=== PATIENT | female | born 1935 | race African-American/Black ===

== ENCOUNTER → 2017-02-04 | Outpatient (CLI) | payer OTHER, MEDICARE ==
--- NOTE | 2017-02-05 09:29 | RAD ---
DATE: 02/04/2017 EXAM: DIGITAL SCREEN BILAT W/CAD HISTORY: Routine screening COMPARISON: 01/16/2016 This study was interpreted with the benefit of Computerized Aided Detection (CAD). The breast parenchyma shows scattered fibroglandular densities. Breast parenchyma level B. FINDINGS: No new or enlarging breast densities are seen. Benign type calcifications are present in both breasts. No suspicious microcalcifications have developed. IMPRESSION: Stable mammograms without evidence of malignancy. BI-RADS CATEGORY: 2 BENIGN FINDING(S) RECOMMENDED FOLLOW-UP: 12M 12 MONTH FOLLOW-UP PQRS compliance statement: Patient information was entered into a reminder system with a target due date for the next mammogram. Mammography is a sensitive method for finding small breast cancers, but it does not detect them all and is not a substitute for careful clinical examination. A negative mammogram does not negate a clinically suspicious finding and should not result in delay in biopsying a clinically suspicious abnormality. "Our facility is accredited by the [employer] Mammography Program."
== END | disposition home or self-care (01) ==
LOC: MAMMO 09:53
PROVIDERS: ATTEND Internal Medicine
DX: Z12.31 Encounter for screening mammogram for malignant neoplasm of breast (principal)
CPT/HCPCS: G0202; 77067

== ENCOUNTER → 2019-01-16 | Outpatient (CLI) | payer MEDICARE, OTHER ==
--- NOTE | 2019-01-16 15:03 | KCIC ---
RENAL COMPLETE BILATERAL History: CK disease stage III Comparison: None. Findings: Multiple sonographic images of the kidneys and urinary bladder submitted. Right kidney measured 10.5 x 4.5 x 4 0.2 cc. Left kidney measured 10.2 x 4.5 x 4.3 cm. Renal parenchyma is somewhat echogenic bilaterally. There is no hydronephrosis of either kidney. Inferior vena cava is not well visualized on this exam. Abdominal aortic caliber is within normal limits up to 2.3 cm proximally. There is diffuse plaque of the abdominal aorta. Ureteral jets are not seen during exam. Urinary bladder is within normal limits, not significantly distended. Impression: 1. There is no hydronephrosis of either kidney, somewhat echogenic renal parenchyma which could be due to medical renal disease. Electronically signed by: Brad Rodriguez MD (01/16/2019 3:00 PM) [id number]
== END | disposition home or self-care (01) ==
LOC: KCIC US 12:18
PROVIDERS: ATTEND Internal Medicine Nephrology
DX: N18.3 Chronic kidney disease, stage 3 (moderate) (principal); I70.0 Atherosclerosis of aorta
CPT/HCPCS: 76770

== ENCOUNTER → 2020-01-06 | Outpatient (CLI) | payer MEDICARE ==
--- NOTE | 2020-01-06 13:18 | RAD ---
EXAM: BILATERAL DIGITAL DIAGNOSTIC MAMMOGRAPHY, and Limited right breast ultrasound. HISTORY: 84-year-old woman with right breast lump. She is due for screening.. TECHNIQUE: Bilateral full field digital images were obtained in CC and MLO projections. 2-D and 3-D images were acquired. Targeted ultrasound of the right breast was then performed in the area of clinical concern. COMPARISON: February 04, 2017 and January 16, 2016 bilateral mammograms.. COMPOSITION: C. The breasts are heterogeneously dense, which may obscure small masses. FINDINGS: Left mammogram is negative. Right mammogram shows interval development of diffuse skin thickening and trabecular coarsening. There is been a generalized increase in density in the right breast compared with the left and on the 3-D mammograms, an irregular mass measuring 5 x 3 cm is identified in the upper outer quadrant that correlates with the patient's reported area of palpable concern as marked on the skin surface the triangular marker. Targeted ultrasound of the upper outer quadrant right breast reveals an irregular hypoechoic antiparallel mass at the 9:30 o'clock position 9 cm from the nipple that has overlying skin retraction and thickening. Due to the extensive associated shadowing, accurate measurement of the mass is challenging but by ultrasound, it measures approximately 2.4 cm. Sonographic survey of the right axilla shows a few normal sized axillary lymph nodes with subtle asymmetric cortical thickening, equivocal for possible tumor infiltration. BI-RADS CATEGORY: 5: Highly Suggestive of Malignancy--Appropriate action should be taken. RECOMMENDATION: Right breast biopsy in the area of palpable concern is recommended with consideration of biopsy of right axillary lymph nodes as well. Discussed with patient with her son present at her request prior to her discharge from the imaging suite. Also discussed the findings and recommendations with patient's referring physician Dr. Guerra's nurse Ifrah Lenz LPN by telephone at 1:11 PM 01/06/2020. Patient entered into a reminder system for targeted due date for next mammogram. Electronically signed by: Millicent Cagle MD (01/06/2020 1:15 PM) [id number]
== END | disposition home or self-care (01) ==
LOC: MAMMO 08:00
PROVIDERS: ATTEND Internal Medicine
DX: N63.11 Unspecified lump in the right breast, upper outer quadrant (principal)
CPT/HCPCS: 76641; 77066; G0279; 77062

== ENCOUNTER → 2020-02-13 | Outpatient (CLI) | payer MEDICARE ==
--- NOTE | 2020-02-13 11:44 | RAD ---
EXAM: 1. ULTRASOUND-GUIDED CORE BIOPSY RIGHT BREAST WITH CLIP PLACEMENT. 2. POSTCLIP DIAGNOSTIC RIGHT MAMMOGRAPHY. HISTORY: Right breast mass. Ultrasound-guided biopsy is requested. FINDINGS: The procedure along with its risks and benefits were explained to the patient. She agreed to proceed. A timeout procedure was performed. Sonographic evaluation of the right breast redemonstrates the region of concern. A hypoechoic shadowing mass within the right lower outer breast adjacent to the site of skin retraction was selected for biopsy. Survey of the right axilla revealed no clearly pathologically appearing lymph nodes. The overlying skin was sterilely prepped and infiltrated with 1% lidocaine for local anesthesia. Under ultrasound guidance, 3 core needle specimens of the target lesion were obtained using a 14-gauge biopsy device. These were submitted in formalin. A postbiopsy clip was placed under ultrasound guidance. Pressure was held to hemostasis. There were no immediate complications. Full-field digital mammographic views of the right breast were obtained in CC and MLO projections and interpreted on a dedicated workstation. They demonstrate the clip in correspondence with the targeted region, which is not discretely masslike mammographically. Extensive skin thickening and interstitial edema are again noted. IMPRESSION: 1. Successful ultrasound-guided right breast biopsy with clip placement. 2. The postbiopsy clip corresponds with the target lesion. Electronically signed by: Daisha Michelle MD (02/13/2020 11:41 AM) [id number]
--- NOTE | 2020-02-14 18:10 | PATHOLOGY ---
[facility] Accession Number: [id number] . 01 Material submitted: . breast - RIGHT BREAST MASS 9:30 9CMFN 2.7CM. Modifiers: right . 01 Clinical history: . Right breast mass 9:30 9 cm from nipple, 2.7 cm . 02 Diagnosis: Breast tissue, right breast mass 9:30 needle biopsies: - INVASIVE DUCTAL CARCINOMA, HIGH GRADE. SEE COMMENT. (JPM:pit 02/14/2020) [facility] 02/14/2020 1720 Local . 02 Comment: Sections of the right breast mass 9:30 needle biopsy reveal an invasive mammary carcinoma. The tumor cells are largely present in small solid nests and show little evidence of tubule formation. The tumor cells are associated with a reactive desmoplastic stroma and focally infiltrate fatty tissue. The tumor shows moderate to marked nuclear pleomorphism. The tumor focally shows up to three mitotic figures within a high power field. The tumor measures up to 1.6 cm in greatest dimension on the glass slide. There is no lymphovascular tumor invasion. There are no tumor associated calcifications. The morphologic findings are supportive of the diagnosis of an invasive high grade ductal carcinoma. Breast prognostic studies will be obtained, results of which will be reported separately. The case is also examined by Dr. Garcia, who concurs with the diagnosis. (JPM:pit 02/14/2020) . 02 Electronically signed: . Zechariah Suresh MD, Pathologist NPI- [id number] . 01 Gross description: . The specimen is received in formalin, labeled "Jeni Wood, right breast". Received are three needle cores of fibrofatty tissue measuring 2.1 x 0.6 x 0.2 cm in aggregate dimensions. The specimen is submitted entirely in cassettes A1 through A3. The cold ischemic time is less than 1 minute. The total formalin fixation time is 12 hours and 13 minutes. (CAA; 02/13/2020) [facility] 02/13/2020 1552 Local . 02 Pathologist provided ICD-10: C50.911 . 02 CPT . 119714 Specimen Comment: A courtesy copy of this report has been sent to [phone] Specimen Comment: [id number], Specimen Comment: Report sent to ,DR VELEZ / DR VALDEZ Performed at: 01 [facility] [address] [facility] [address], [place] [id number] MD Chino Vizcarra MD Phone: [phone] Performed at: 02 [facility] [address] [place], [place] [id number] MD Zechariah Suresh MD Phone: [phone]
== END | disposition home or self-care (01) ==
LOC: US 09:43
PROVIDERS: ATTEND Surgery
DX: R92.2 Inconclusive mammogram (principal); N63.10 Unspecified lump in the right breast, unspecified quadrant
CPT/HCPCS: 76942; 77065; C1713; 88305; 88361

== ENCOUNTER → 2020-02-26 | Outpatient (CLI) | payer MEDICARE ==
[2020-02-26 15:25] LABS: BASO % 1 % (0-3); EOS % 1 % (0-3); HEMATOCRIT 32.4 % (36.0-47.0); HEMOGLOBIN 10.7 g/dL (12.0-15.5); LYMPH # 1.7 x10^3/uL (1.0-4.8); LYMPH % 28 % (24-48); MEAN CORPUSCULAR HEMOGLOBIN 28 pg (25-35); MEAN CORPUSCULAR HGB CONC 33 g/dL (31-37); MEAN CORPUSCULAR VOLUME 84 fL (79-100); MONO # 0.9 x10^3/uL (0.0-1.1); MONO % 15 % (0-9); NEUT # 3.4 x10^3/uL (1.8-7.7); NEUT % 56 % (31-73); PLATELET COUNT 283 x10^3/uL (140-400); RED BLOOD COUNT 3.85 x10^6/uL (3.50-5.40); RED CELL DISTRIBUTION WIDTH 14.6 % (11.5-14.5)
[2020-02-26 15:44] LABS: ALBUMIN 3.2 g/dL (3.4-5.0); ALBUMIN/GLOBULIN RATIO 0.8 (1.0-1.7); CALCIUM 8.6 mg/dL (8.5-10.1); CREATININE 1.8 mg/dL (0.6-1.0); GFR 32.5; TOTAL BILIRUBIN 0.3 mg/dL (0.2-1.0); TOTAL PROTEIN 7.1 g/dL (6.4-8.2)
== END | disposition home or self-care (01) ==
LOC: ONCLAB 08:50
PROVIDERS: ATTEND Internal Medicine Hematology & Oncology
DX: C50.411 Malignant neoplasm of upper-outer quadrant of right female breast (principal)
CPT/HCPCS: 36415; 80053; 85025

== ENCOUNTER → 2020-03-06 | Outpatient (CLI) | payer MEDICARE ==
--- NOTE | 2020-03-06 15:24 | RAD ---
EXAM: PET W CT SKULL TO MIDTHIGH EXAM DATE: 03/06/2020 INDICATION: Reason: BREAST CA / Spl. Instructions: / History: RADIOPHARMACEUTICAL: 15.0 mCi of F-18 Fluorodeoxyglucose (FDG) I.V. via the right antecubital fossa. TECHNIQUE: Patient weight: 160 pounds. Following at least four-hour fasting, the patient's blood glucose was 156 mg/dl. Approximately 1 hour after administration of FDG, overlapping emission scanning was performed from the orbital meatal line through the pelvis. A low-dose CT was performed for attenuation correction purposes and anatomic localization. Fused images of PET and CT were reviewed. Any standardized uptake values (SUV) reported are maximum values within a volume region of interest, expressed in gm/ml. COMPARISON: Right post procedure diagnostic mammogram of 02/13/2020. FINDINGS: PET: In the head and neck, no abnormal FDG uptake is appreciated. In the chest, abnormal FDG uptake is evident in the skin of the right anterior chest wall (3.7 max SUV), the right breast parenchyma (6.5 max SUV) , the right pectoralis major muscle (4.9 Max SUV), the right levels 1 and 2 axillary lymph nodes (3.8 and 4.9 Max SUV respectively), a right internal mammary lymph node (4.5 max SUV), and a right hilar lymph node. There is also small right pleural effusion with a low level of FDG uptake (1.8 Max SUV). Background mediastinal activity is 2.9 Max SUV. No abnormal FDG activity in the abdomen or pelvis identified. Background liver activity measures 3.6 Max SUV No abnormal activity in the bones. CT: Attenuation correction CT images show right chest wall edema and skin thickening with mildly enlarged right axillary lymph nodes. 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 Small right pleural effusion shows no obvious soft tissue nodularity or loculation. No obvious interstitial thickening in the pulmonary parenchyma. Abdomen and pelvis show scattered colonic diverticuli with no omental cake, ascites or adenopathy. The uterus is absent. No adnexal mass is evident. No aggressive appearing osseous lesions. Bilateral L5 pars defects with grade 1 anterolisthesis. IMPRESSION: Locally advanced right breast cancer with evidence of dermal lymphatic invasion and mary ann extension up to potentially the right hilar lymph nodes. A small right pleural effusion is present that shows low level FDG uptake. It should be amenable for diagnostic thoracentesis if it would assist with patient clinical management. Electronically signed by: Millicent Cagle MD (03/06/2020 3:21 PM) [id number]
== END ==
LOC: PETSC 08:55
PROVIDERS: ATTEND Internal Medicine Hematology & Oncology
DX: C50.411 Malignant neoplasm of upper-outer quadrant of right female breast (principal); R59.0 Localized enlarged lymph nodes; I35.8 Other nonrheumatic aortic valve disorders; J90 Pleural effusion, not elsewhere classified
CPT/HCPCS: 78815; A9552

== ENCOUNTER → 2020-03-11 | Outpatient (CLI) | payer MEDICARE ==
[2020-03-11 13:05] LABS: ALBUMIN 3.2 g/dL (3.4-5.0); DIRECT BILIRUBIN 0.2 mg/dL (0.0-0.2); TOTAL BILIRUBIN 0.3 mg/dL (0.2-1.0); TOTAL PROTEIN 6.9 g/dL (6.4-8.2)
[2020-03-13 19:10] LABS: METHYLMALONIC ACID 220 nmol/L (0-378)
== END | disposition home or self-care (01) ==
LOC: ONCLAB 12:21
PROVIDERS: ATTEND Physician Assistant
DX: C50.411 Malignant neoplasm of upper-outer quadrant of right female breast (principal)
CPT/HCPCS: 36415; 80076; 82607; 82728; 82746; 83540; 83550; 83921; 86705; 86709; 86803; 87340

== ENCOUNTER → 2020-03-18 | Outpatient (CLI) | payer MEDICARE ==
--- NOTE | 2020-03-18 14:08 | KCIC ---
INDICATION: Osteoporosis screening. Postmenopausal screening COMPARISON: None. TECHNIQUE: Bone densitometry was performed through the lumbar spine and proximal femur. FINDINGS: Lumbar Spine: BMD: 1.1 T-Score: 0.5 Proximal Femur: BMD: 0.9 T-Score: -0.4 IMPRESSION: 1. Lumbar spine falls within the normal range. 2. Proximal femur falls within the normal range. Electronically signed by: Enzo Cm MD (03/18/2020 2:05 PM) [id number]
== END | disposition home or self-care (01) ==
LOC: KCIC DEXA 10:58
PROVIDERS: ATTEND Physician Assistant
DX: C50.411 Malignant neoplasm of upper-outer quadrant of right female breast (principal); Z13.820 Encounter for screening for osteoporosis; Z78.0 Asymptomatic menopausal state
CPT/HCPCS: 77080

== ENCOUNTER → 2020-04-01 | Outpatient (CLI) | payer MEDICARE ==
--- NOTE | 2020-04-01 12:51 | RAD ---
EXAM: CHEST PA LATERAL INDICATION: Reason: ASSESS PLEURAL EFFUSION. INVASIVE DUCTAL CARCINOMA OF FEMALE BREAST. / Spl. Instructions: / History: . TECHNIQUE: PA and lateral views COMPARISON: PET CT of 03/06/2020 FINDINGS: Heart is moderately enlarged, status post CABG. At least 4 of the sixth sternotomy wires are broken. The great vessels show aortic calcification and mild tortuosity. There is mild prominence of the right pulmonary artery.. There is no hilar or mediastinal mass. Lungs are hypoventilatory but show no focal infiltrates. No evidence of pneumothorax. Small right pleural effusion. There are no significant osseous abnormalities. IMPRESSION: Cardiomegaly and post CABG surgical changes with broken cerclage wires and a small right residual pleural effusion. This appears unchanged from previous examination. Electronically signed by: Millicent Cagle MD (04/01/2020 12:49 PM) [id number]
== END | disposition home or self-care (01) ==
LOC: RAD 11:29
PROVIDERS: ATTEND Physician Assistant
DX: C50.411 Malignant neoplasm of upper-outer quadrant of right female breast (principal); J90 Pleural effusion, not elsewhere classified; I51.7 Cardiomegaly; I70.0 Atherosclerosis of aorta; Q25.46 Tortuous aortic arch; Z95.1 Presence of aortocoronary bypass graft
CPT/HCPCS: 71046